=== PATIENT | female | born 1965 | race Caucasian/White ===

== ENCOUNTER 2019-08-17 12:45 | Outpatient (CLI) | payer OTHER, SELFPAY ==
--- NOTE | 2019-08-17 13:05 | MM_ITS ---
WS: [id number] SCREENING DIGITAL MAMMOGRAM WITH CAD HISTORY: SCREENING COMPARISON: 08/02/2018 and 06/30/2017 Bilateral CC and MLO views submitted. Computer aided detection analyzed. Breast composition: The breasts are heterogeneously dense, which may obscure small masses. No suspici ous masses, microcalcifications or architectural distortion. Benign cluster of calcifications in the inferior LEFT breast. No suspicious grouping of calcifications. MM/[id number] IMPRESSION: BI-RADS: 2-Benign FOLLOW UP: 1 Year Follow-up
== END 2019-08-17 12:46 | disposition home or self-care (01) ==
LOC: RADSHAW 12:49
PROVIDERS: PCP Family Medicine; Visit Provider Family Medicine
DX: Z12.31 Encounter for screening mammogram for malignant neoplasm of breast (principal)
CPT/HCPCS: 77067

== ENCOUNTER → 2019-08-23 08:49 | Outpatient (BNVA) | payer OTHER, SELFPAY | PROVIDERS: PCP Family Medicine; Visit Provider Family Medicine | DX: E55.9 Vitamin D deficiency, unspecified (principal); Z86.39 Personal history of other endocrine, nutritional and metabolic disease; Z13.6 Encounter for screening for cardiovascular disorders | CPT/HCPCS: 80053; 80061; 82306; 83036; 85025 ==

== ENCOUNTER → 2019-10-08 15:56 | Outpatient (BNVA) | payer OTHER, SELFPAY | PROVIDERS: PCP Family Medicine; Visit Provider Family Medicine | DX: E78.5 Hyperlipidemia, unspecified (principal) | CPT/HCPCS: 80053 ==

== ENCOUNTER → 2019-11-28 08:44 | Outpatient (BNVA) | payer OTHER, SELFPAY | PROVIDERS: PCP Family Medicine; Visit Provider Family Medicine | DX: E78.5 Hyperlipidemia, unspecified (principal); Z13.6 Encounter for screening for cardiovascular disorders | CPT/HCPCS: 80053; 80061 ==

== ENCOUNTER → 2020-05-13 08:41 | Outpatient (BNVA) | payer OTHER, SELFPAY | PROVIDERS: PCP Family Medicine; Visit Provider Family Medicine | DX: E78.5 Hyperlipidemia, unspecified (principal); Z79.899 Other long term (current) drug therapy | CPT/HCPCS: 80053 ==

== ENCOUNTER 2020-09-03 14:17 | Outpatient (CLI) | payer OTHER, SELFPAY ==
--- NOTE | 2020-09-03 14:23 | MM_ITS ---
WS: [id number] BILATERAL DIGITAL SCREENING MAMMOGRAPHY WITH CAD CLINICAL INFORMATION: SCREENING HISTORY: Screening mammogram. No current complaints. COMPARISON: August 17, 2019 TECHNIQUE: Bilateral CC and MLO views. FINDINGS: The breasts are composed of heterogeneous fibroglandular density tissue, which can limit the detectio n of small underlying mass lesions. Lucent centered calcifications left breast. No suspicious mass, a symmetry, calcifications, or architectural distortion. No evidence of malignancy. MM/[id number] IMPRESSION: BI-RADS: 2-Benign FOLLOW UP: 1 Year Follow-up Recommend return to annual screening mammography.
== END 2020-09-03 14:18 | disposition home or self-care (01) ==
PROVIDERS: PCP Family Medicine; Visit Provider Family Medicine
DX: Z12.31 Encounter for screening mammogram for malignant neoplasm of breast (principal)
CPT/HCPCS: 77067

== ENCOUNTER → 2020-12-01 08:40 | Outpatient (BNVA) | payer OTHER, SELFPAY | PROVIDERS: PCP Family Medicine; Visit Provider Family Medicine | DX: E78.5 Hyperlipidemia, unspecified (principal); Z86.39 Personal history of other endocrine, nutritional and metabolic disease | CPT/HCPCS: 80053; 80061; 82306; 85025 ==

== ENCOUNTER → 2021-06-01 08:22 | Outpatient (BNVA) | payer OTHER, SELFPAY | PROVIDERS: PCP Family Medicine; Visit Provider Family Medicine | DX: E78.5 Hyperlipidemia, unspecified (principal) | CPT/HCPCS: 80053 ==

== ENCOUNTER 2021-06-04 08:31 | Emergency (ER) | payer OTHER, SELFPAY ==
[2021-06-04 08:38] VITALS: BP 123/95; PULSE 115; RESP 22; TEMP 36.6; O2SAT 100; BMI 26.8
--- NOTE | 2021-06-04 08:40 | W.ED.ALLEREA ---
HPI - Allergic Reaction General: Chief complaint: Allergic Reaction Stated complaint: Alergic rx took epipen Time Seen by Provider: 06/04/21 08:37 History of Present Illness: HPI narrative: Patient is a 56 female comes to the ED with allergic reaction. Patient has a history of all fine gal allergy. Patient says she just took Prilosec for the first time in a long time and immediately afterwards she developed hives, tongue swelling and headache. She describes the head pain is like her head was swelling up. Patient took her EpiPen and decided to come here to the ED for further evaluation. Currently here in the ED her hives and tongue swelling have resolved. Associated symptoms: Reports tongue swelling; Deny abdominal pain, nausea or vomiting Review of Systems Const: Denies: fever(s), chills or fatigue Eyes: Denies: change in vision or eye discomfort ENMT: Denies: throat pain, odynophagia, nasal discharge or nasal congestion Card: Denies: chest pain, palpitations, edema, swelling of feet/ankles, dyspnea on exertion or orthopnea Resp: Denies: dyspnea, productive cough or non-productive cough GI: Denies: abdominal pain, nausea, vomiting, diarrhea, constipation or hematochezia : Denies: flank pain, dysuria or hematuria Musc: Denies: neck pain, back pain or extremity swelling Skin/Breast: Denies: rash or new lesions Neuro: Denies: headache(s), numbness in extremities or weakness in extremities All/Imm: Reports: urticaria and tongue swelling PFSH ED PFSH: Medical History Allergy to alpha-gal Hyperlipidemia No pertinent past medical history Surgical History H/O: hysterectomy Partial hyst. Family History Other Cancer Hyperlipidemia Hypertension Social History Smoking and tobacco status: current some day smoker (uses a vape pen) Alcohol intake: current Alcohol intake frequency: few times a week Alcohol type: beer Physical Exam Const: COMMON NORMALS: no acute distress, patient oriented x3 and alert GENERAL APPEARANCE: cooperative HENMT: COMMON NORMALS: normocephalic HEAD & SCALP: normocephalic MOUTH: Normal oral and palatal mucosa present THROAT: posterior oropharynx normal and uvula midline Neck/C-Spine: COMMON NORMALS: supple GENERAL: Yes normal visual inspection Resp: COMMON NORMALS: normal respiratory effort, No retractions, No use of accessory muscles and clear to auscultation bilaterally AUSCULTATION: clear to auscultation bilaterally Cardio: COMMON NORMALS: regular rate, regular rhythm, S1 normal heart sound present, S2 normal heart sound present, No gallops present (Cardio), No clicks present (Cardio), No murmurs present (Cardio) and Peripheral pulses 2+ throughout RATE: regular rate RHYTHM: regular rhythm HEART SOUNDS: S1 normal heart sound present and S2 normal heart sound present PERIPHERAL PULSES: Peripheral pulses 2+ throughout GI: COMMON NORMALS: Normal to inspection, nondistended, normoactive bowel sounds present, Soft to palpation, non-tender and no masses PALPATION: Yes Soft to palpation : COMMON NORMALS: Yes no CVA tenderness BLADDER/KIDNEY EXAM: Yes no CVA tenderness Back/Pelvis: COMMON NORMALS: no CVA tenderness Extremity: COMMON NORMALS: normal to inspection Neuro: COMMON NORMALS: patient oriented x3 and moves all extremities SENSORIUM/ORIENTATION: Yes alert Skin: GENERAL SKIN EXAM: dry skin Course Vital Signs: Vital signs: Vital Signs Temperature 97.9 F 06/04/21 08:38 Pulse Rate 106 H 06/04/21 09:24 Respiratory Rate 14 06/04/21 09:24 Blood Pressure 128/96 06/04/21 09:24 Pulse Oximetry 98 06/04/21 09:24 MDM - Allergic Reaction Medical Decision Making Patient is a 56-year-old female comes to the ED with allergic reaction. Patient has a history of alpha gal and has used EpiPen for past allergic reactions. Patient used EpiPen and came here to the ED for further evaluation. Patient was having some tongue swelling, hives. Here in the ED most of patient's symptoms had resolved. She was then given IV fluids, Pepcid, Solu-Medrol and Benadryl. Patient's symptoms completely resolved and she was feeling better. She was watched for close to an hour and a half and had no rebound reactions. She was stable for discharge home and told to follow-up with her PCP in the next week for reevaluation. Return to ED precautions given. Patient is to agree with plan. Discharge Plan Discharge Patient Disposition: Home Clinical Impression: Allergic reaction Qualifiers: Encounter type: initial encounter Qualified Code(s): T78.40XA - Allergy, unspecified, initial encounter Condition: Stable Prescriptions: No Action atorvastatin 20 mg tablet 20 mg PO DAILY Qty: 90 1RF epinephrine 0.3 mg/0.3 mL auto-injector 0.3 mg IM Q15M PRN (Reason: anaphylaxis) Qty: 2 0RF Rx Instructions: for 2 doses 340 B Benadryl 25 mg Capsule 25 mg PO Q6H PRN (Reason: Allergic Symptoms) 0RF Vitamin D3 10 mcg (400 unit) Tablet 10 mcg PO DAILY 0RF Discharge Orders: Discharge ED (Routine); Ordered 06/04/21 Ordered By: Luis Angel Jose Referrals: Yen Patton DO [Primary Care Provider] - Discharge Diet: Regular Discharge Activity: Increase activity as tolerated Patient Instructions: Allergic Reaction Activity Restrictions/Additional Instructions: Follow-up with medical provider as directed in the next 7 to 10 days for evaluation. Continue taking medication as previously prescribed. Use EpiPen as needed for any other allergic reactions. Return to the ER or your medical provider if condition worsens. Please read and understand discharge instructions. Thank you for choosing [facility] for your healthcare needs today. Please realize this is an emergency room and that we are providing you with a medical screening exam and this may not be complete and all inclusive of all the testing and or work up that you may need to determine your ailment or severity of your illness. It is very important that you follow up as instructed or that you return to the Emergency Department should you have concerns or if your condition changes or worsens in any way. Coding Level of Care Code ED Patient Observation Assistant for Royce Stevenson Exam Comprehensive
[2021-06-04] MEDS: diphenhydrAMINE 50 mg/mL SDV 1mL IVP (08:48)
[2021-06-04] MEDS: famotidine 20 mg/2 mL INJ 40 MG IVP (08:48)
[2021-06-04] MEDS: sodium chloride 0.9% 1,000 ML 999 ML IV (08:49)
[2021-06-04 09:24] VITALS: BP 128/96; PULSE 106; RESP 14; O2SAT 98
--- NOTE | 2021-06-04 10:22 | PC.NURSE ---
Patient refused zofran, she states she is afraid to have reaction and does not want to take it.
[2021-06-04 10:57] VITALS: BP 134/79; PULSE 100; RESP 16; O2SAT 96
[2021-06-04 10:59] VITALS: BP 134/79; PULSE 100; RESP 16; O2SAT 96
== END 2021-06-04 11:01 | disposition home or self-care (01) ==
PROVIDERS: Emergency Provider Physician Assistant; PCP Family Medicine
DX: L50.0 Allergic urticaria (principal); T47.1X5A Adverse effect of other antacids and anti-gastric-secretion drugs, initial encounter; F17.290 Nicotine dependence, other tobacco product, uncomplicated
CPT/HCPCS: 96361; 96374; 96375; 99284; J1200; J2930; J3490; J7030

== ENCOUNTER 2021-08-11 09:31 | Observation (INO) | payer OTHER, SELFPAY ==
[2021-08-11] VITALS (23 sets, daily range): BP systolic 93–166; BP diastolic 67–99; PULSE 67–103; RESP 14–20; TEMP 36.1–36.8; O2SAT 92–100; BMI 25.5
--- NOTE | 2021-08-11 10:44 | ED_ITS ---
Documented by User: BRIGHT Gann 08/11/21 12:46 HPI - Abdominal Pain General: Chief Complaint: Nausea/Vomiting/Diarrhea Stated Complaint: abd pain, N/V Time Seen by Provider: 08/11/21 10:33 Source: patient Mode of arrival: ambulatory Limitations: no limitations History of Present Illness: Patient is a very nice 56-year-old female who presents to ED today with a complaint of right lower abdominal pain. Patient tells me approximately 2 days ago she began feeling pain in her right lower quadrant. She thought it might be secondary to gas/constipation. Patient states she was able to have a bowel movement and was passing gas easily. She states over the past 48 hours pain has progressively worsened. She states this morning she had repetitive episodes of nonbloody emesis. She has not been running fevers. She has no urinary symptoms. She was seen by Dr. Hewitt earlier today and sent here to the ED for concerns of an acute abdomen. Previous abdominal surgeries include a hysterectomy. MD elicited complaint: abdominal pain Pertinent past history: none Onset (ago): day(s) Pain Consistency: constant Location: RLQ Severity: severe Quality: stabbing and sharp Radiation: none Migration to: no migration Associated Symptoms: Reports nausea and vomiting; Denies chills, diarrhea, dysuria, fever(s), hematochezia, hematuria and melena Related Data: Patient : No Review of Systems Const: Denies: fever(s), chills, body aches, fatigue or malaise Card: Denies: chest pain Resp: Denies: dyspnea GI: Reports: abdominal pain, nausea and vomiting; Denies: diarrhea, hematochezia or melena : Denies: flank pain, dysuria or hematuria Musc: Denies: neck pain, back pain, extremity pain or joint pain Skin/Breast: Denies: rash Neuro: Denies: headache(s), numbness in extremities, weakness in extremities, sensory changes or dizziness PFSH ED PFSH: Medical History Acute abdominal pain Allergy to alpha-gal Hyperlipidemia No pertinent past medical history Surgical History H/O: hysterectomy Partial hyst. Family History Other Cancer Hyperlipidemia Hypertension Social History Smoking and tobacco status: current some day smoker (uses a vape pen) Alcohol intake: current Alcohol intake frequency: few times a week Alcohol type: beer Physical Exam Const: COMMON NORMALS: average body habitus, patient oriented x3, no limitati ons, healthy appearing, alert and well nourished GENERAL APPEARANCE: coop erative and in distress (patient appears uncomfortable secondary to pain) ORIENTATION/CONSCIOUSNESS: Yes awake, Yes oriented to person, Yes oriented to place and Yes oriented to time HENMT: COMMON NORMALS: normocephalic and atraumatic HEAD & SCALP: normal to inspection, normocephalic and atraumatic Resp: COMMON NORMALS: normal respiratory effort and clear to auscultation bilaterally AUSCULTATION: clear to auscultation bilaterally Cardio: COMMON NORMALS: regular rate and regular rhythm RATE: regular rate RHYTHM: regular rhythm GI: COMMON NORMALS: Normal to inspection, nondistended, normoactive bowel sounds present, Soft to palpation, No hepatosplenomegaly present and no masses INSPECTION: Yes normal to inspection AUSCULTATION: Yes normoactive bowel sounds PALPATION: Yes Soft to palpation, Yes Tenderness to palpation present (GI) (throughout lower abdomen; maximum pain to RLQ), Yes Guarding due to palpation present (GI) and Yes No hepatosplenomegaly present : COMMON NORMALS: Yes no CVA tenderness BLADDER/KIDNEY EXAM: Yes no CVA tenderness Back/Pelvis: COMMON NORMALS: no CVA tenderness Extremity: GENERAL: Yes normal exam except as noted Neuro: KRUPA COMA SCALE: document GCS findings [place] coma scale eye opening: Spontaneous [place] coma scale verbal response: Orientated [place] coma scale motor response: Obey commands [place] coma scale total score: 15 COMMON NORMALS: patient oriented x3 SENSORIUM/ORIENTATION: Yes alert, Yes oriented to person, Yes oriented to place and Yes oriented to time Skin: COMMON NORMALS: no rashes or lesions noted GENERAL SKIN EXAM: no rashes or lesions noted Course Vital Signs: Vital signs: Vital Signs Temperature 97.6 F 08/11/21 15:35 Pulse Rate 81 08/11/21 15:35 Respiratory Rate 18 08/11/21 15:35 Blood Pressure 146/83 08/11/21 15:35 Pulse Oximetry 98 08/11/21 15:35 MDM - Abdominal Pain Medical Decision Making Patient has acute appendicitis on her CT scan. She is not tachycardic or febrile. White count is 11.1. Tells me she has no known medical history although she does states she takes a statin daily. Case discussed with Dr. Godoy who has spoken to general surgeon Dr. Messina who will admit patient to his service and take directly to surgery. Later I was contacted by in regards to incidental finding regarding a gallbladder lesion. Dr. Messina made aware of this and will follow patient. Lab Data : 08/11/21 10:46 08/11/21 10:46 Labs/Radiology: Radiology Impressions Abdomen/Pelvis CT 08/11/21 10:55 IMPRESSION: 1. Findings compatible with acute appendicitis in the RIGHT lower quadrant. No drainable abscess or fluid collection. 2. Lobulated and septated 2.5 cm calcified lesion abutting the gallbladder in the gallbladder fossa. This appears separate from the gallbladder but indeterminate. Recommend further evaluation with ultrasound and MRCP. Differenti al considerations include biliary cystoadenoma/cystadenocarcinoma or exophytic gallbladder wall polypoid lesion. 3. No other significant findings. Notified BRIGHT Gann at 08/11/2021 11:58 AM. Laboratory Results WBC 11.1 10^3/uL (4.0-10.0) H 08/11/21 10:46 RBC 4.70 10^6/uL (4.1-5.3) 08/11/21 10:46 Hgb 13.5 g/dL (11.5-15.3) 08/11/21 10:46 Hct 39.5 % (37.0-47.0) 08/11/21 10:46 MCV 84.0 fl (81-99) 08/11/21 10:46 MCH 28.7 pg (28.0-34.0) 08/11/21 10:46 MCHC 34.2 g/dL (30.0-36.0) 08/11/21 10:46 RDW 12.8 % (12.1-15.1) 08/11/21 10:46 Plt Count 293 10^3/cmm (130-400) 08/11/21 10:46 MPV 11.0 fL (7.4-10.4) H 08/11/21 10:46 Neut % (Auto) 78.5 % 08/11/21 10:46 Lymph % (Auto) 16.8 % 08/11/21 10:46 [place] % (Auto) 3.6 % 08/11/21 10:46 Eos % (Auto) 0.3 % 08/11/21 10:46 Baso % (Auto) 0.4 % 08/11/21 10:46 Neut # (Auto) 8.73 10^3/uL (1.8-7.7) H 08/11/21 10:46 Lymph # (Auto) 1.9 10^3/uL (0.8-4.8) 08/11/21 10:46 [place] # (Auto) 0.4 10^3/uL (0.2-0.9) 08/11/21 10:46 Eos # (Auto) 0.0 10^3/uL (0.0-0.8) 08/11/21 10:46 Baso # (Auto) 0.0 10^3/uL (0.0-0.1) 08/11/21 10:46 Nucleated RBC % (auto) 0 % 08/11/21 10:46 Nucleated RBCs # 0.0 /100WBC 08/11/21 10:46 Sodium 137 mmol/L (136-145) 08/11/21 10:46 Potassium 3.8 mmol/L (3.5-5.1) 08/11/21 10:46 Chloride 95 mmol/L (98-107) L 08/11/21 10:46 Carbon Dioxide 24 mmol/L (22-29) 08/11/21 10:46 Anion Gap 21.8 (5-19) H 08/11/21 10:46 BUN 8 mg/dL (6-20) 08/11/21 10:46 Creatinine 0.8 mg/dL (0.5-0.9) 08/11/21 10:46 GFR Calculation 73.9 mL/min (90-130) L 08/11/21 10:46 Glucose 132 mg/dL (65-115) H 08/11/21 10:46 Calculated Osmolality 284 mOsm/kg (285-295) L 08/11/21 10:46 Calcium 10.4 mg/dL (8.5-10.5) 08/11/21 10:46 Total Bilirubin 0.5 mg/dL (0.15-1.2) 08/11/21 10:46 AST 20 U/L (0-32) 08/11/21 10:46 ALT 28 U/L (0-33) 08/11/21 10:46 Alkaline Phosphatase 117 IU/L (35-105) H 08/11/21 10:46 Total Protein 8.2 g/dL (6.6-8.7) 08/11/21 10:46 Albumin 5.2 g/dL (3.5-5.2) 08/11/21 10:46 Globulin 3.0 g/dL (1.3-4.6) 08/11/21 10:46 Lipase 21 U/L (13-60) 08/11/21 10:46 Urine Color Yellow (Yellow) 08/11/21 11:48 Urine Appearance Clear (CLEAR) 08/11/21 11:48 Urine pH 8 (5-7) H 08/11/21 11:48 Ur Specific [place] 1.010 (1.005-1.030) 08/11/21 11:48 Urine Protein Neg (Negative) 08/11/21 11:48 Urine Glucose (UA) Norm (Normal) 08/11/21 11:48 Urine Ketones Negative (Negative) 08/11/21 11:48 Urine Blood Neg (Negative) 08/11/21 11:48 Urine Nitrate Negative (Negative) 08/11/21 11:48 Urine Bilirubin Neg (Negative) 08/11/21 11:48 Prot Sulfosalicylic Acd Negative (Negative) 08/11/21 11:48 Urine Urobilinogen Norm mg/dL (Negative) 08/11/21 11:48 Ur Leukocyte Esterase Negative (Negative) 08/11/21 11:48 Discharge Plan Discharge Patient Disposition: Admitted As Inpatient Admit Provider: Bang Messina Clinical Impression: Acute appendicitis Qualifiers: Acute appendicitis type: with localized peritonitis Appendicitis gangrene presence: without gangrene Appendicitis perforation presence: without perforation Appendicitis abscess presence: without abscess Qualified Code(s): K35.30 - Acute appendicitis with localized peritonitis, without perforation or gangrene Condition: Stable Coding Level of Care Code ED Manager Operations for g Fwd Exam Comprehensive Documented by User: Magdi Godoy DO 08/11/21 16:51 HPI - Abdominal Pain General: Chief Complaint: Nausea/Vomiting/Diarrhea Stated Complaint: abd pain, N/V Time Seen by Provider: 08/11/21 10:33 ON LICENSE OF [facility] ED PFSH: Medical History Acute abdominal pain Allergy to alpha-gal Hyperlipidemia No pertinent past medical history Surgical History H/O: hysterectomy Partial hyst. Family History Other Cancer Hyperlipidemia Hypertension Social History Smoking and tobacco status: current some day smoker (uses a vape pen) Alcohol intake: current Alcohol intake frequency: few times a week Alcohol type: beer Physical Exam Neuro: KRUPA COMA SCALE: document GCS findings [place] coma scale total score: 15 Course Vital Signs: Vital signs: Vital Signs Temperature 97.6 F 08/11/21 15:35 Pulse Rate 81 08/11/21 15:35 Respiratory Rate 18 08/11/21 15:35 Blood Pressure 146/83 08/11/21 15:35 Pulse Oximetry 98 08/11/21 15:35 MDM - Abdominal Pain Medical Decision Making Patient has acute appendicitis on her CT scan. She is not tachycardic or febrile. White count is 11.1. Tells me she has no known medical history although she does states she takes a statin daily. Case discussed with Dr. Godoy who has spoken to general surgeon Dr. Messina who will admit patient to his service and take directly to surgery. Later I was contacted by in regards to incidental finding regarding a gallbladder lesion. Dr. Messina made aware of this and will follow patient. Chart reviewed and patient discussed with midlevel. Agree with assessment and plan. Discussed Dr. Messina plans to take patient to surgery. Medical Records I reviewed the patient's medical records. Lab Data I reviewed the patient's lab results. : 08/11/21 10:46 08/11/21 10:46 Labs/Radiology: Radiology Impressions Abdomen/Pelvis CT 08/11/21 10:55 IMPRESSION: 1. Findings compatible with acute appendicitis in the RIGHT lower quadrant. No drainable abscess or fluid collection. 2. Lobulated and septated 2.5 cm calcified lesion abutting the gallbladder in the gallbladder fossa. This appears separate from the gallbladder but indete rminate. Recommend further evaluation with ultrasound and MRCP. Differential considerations include biliary cystoadenoma/cystadenocarcinoma or exophytic gallbladder wall polypoid lesion. 3. No other significant findings. Notified BRIGHT Gann at 08/11/2021 11:58 AM. Laboratory Results WBC 11.1 10^3/uL (4.0-10.0) H 08/11/21 10:46 RBC 4.70 10^6/uL (4.1-5.3) 08/11/21 10:46 Hgb 13.5 g/dL (11.5-15.3) 08/11/21 10:46 Hct 39.5 % (37.0-47.0) 08/11/21 10:46 MCV 84.0 fl (81-99) 08/11/21 10:46 MCH 28.7 pg (28.0-34.0) 08/11/21 10:46 MCHC 34.2 g/dL (30.0-36.0) 08/11/21 10:46 RDW 12.8 % (12.1-15.1) 08/11/21 10:46 Plt Count 293 10^3/cmm (130-400) 08/11/21 10:46 MPV 11.0 fL (7.4-10.4) H 08/11/21 10:46 Neut % (Auto) 78.5 % 08/11/21 10:46 Lymph % (Auto) 16.8 % 08/11/21 10:46 [place] % (Auto) 3.6 % 08/11/21 10:46 Eos % (Auto) 0.3 % 08/11/21 10:46 Baso % (Auto) 0.4 % 08/11/21 10:46 Neut # (Auto) 8.73 10^3/uL (1.8-7.7) H 08/11/21 10:46 Lymph # (Auto) 1.9 10^3/uL (0.8-4.8) 08/11/21 10:46 [place] # (Auto) 0.4 10^3/uL (0.2-0.9) 08/11/21 10:46 Eos # (Auto) 0.0 10^3/uL (0.0-0.8) 08/11/21 10:46 Baso # (Auto) 0.0 10^3/uL (0.0-0.1) 08/11/21 10:46 Nucleated RBC % (auto) 0 % 08/11/21 10:46 Nucleated RBCs # 0.0 /100WBC 08/11/21 10:46 Sodium 137 mmol/L (136-145) 08/11/21 10:46 Potassium 3.8 mmol/L (3.5-5.1) 08/11/21 10:46 Chloride 95 mmol/L (98-107) L 08/11/21 10:46 Carbon Dioxide 24 mmol/L (22-29) 08/11/21 10:46 Anion Gap 21.8 (5-19) H 08/11/21 10:46 BUN 8 mg/dL (6-20) 08/11/21 10:46 Creatinine 0.8 mg/dL (0.5-0.9) 08/11/21 10:46 GFR Calculation 73.9 mL/min (90-130) L 08/11/21 10:46 Glucose 132 mg/dL (65-115) H 08/11/21 10:46 Calculated Osmolality 284 mOsm/kg (285-295) L 08/11/21 10:46 Calcium 10.4 mg/dL (8.5-10.5) 08/11/21 10:46 Total Bilirubin 0.5 mg/dL (0.15-1.2) 08/11/21 10:46 AST 20 U/L (0-32) 08/11/21 10:46 ALT 28 U/L (0-33) 08/11/21 10:46 Alkaline Phosphatase 117 IU/L (35-105) H 08/11/21 10:46 Total Protein 8.2 g/dL (6.6-8.7) 08/11/21 10:46 Albumin 5.2 g/dL (3.5-5.2) 08/11/21 10:46 Globulin 3.0 g/dL (1.3-4.6) 08/11/21 10:46 Lipase 21 U/L (13-60) 08/11/21 10:46 Urine Color Yellow (Yellow) 08/11/21 11:48 Urine Appearance Clear (CLEAR) 08/11/21 11:48 Urine pH 8 (5-7) H 08/11/21 11:48 Ur Specific [place] 1.010 (1.005-1.030) 08/11/21 11:48 Urine Protein Neg (Negative) 08/11/21 11:48 Urine Glucose (UA) Norm (Normal) 08/11/21 11:48 Urine Ketones Negative (Negative) 08/11/21 11:48 Urine Blood Neg (Negative) 08/11/21 11:48 Urine Nitrate Negative (Negative) 08/11/21 11:48 Urine Bilirubin Neg (Negative) 08/11/21 11:48 Prot Sulfosalicylic Acd Negative (Negative) 08/11/21 11:48 Urine Urobilinogen Norm mg/dL (Negative) 08/11/21 11:48 Ur Leukocyte Esterase Negative (Negative) 08/11/21 11:48 Discharge Plan Discharge Patient Disposition: Admitted As Inpatient Admit Provider: Bang Messina Clinical Impression: Acute appendicitis Qualifiers: Acute appendicitis type: with localized peritonitis Appendicitis gangrene presence: without gangrene Appendicitis perforation presence: without perforation Appendicitis abscess presence: without abscess Qualified Code(s): K35.30 - Acute appendicitis with localized peritonitis, without perforation or gangrene Condition: Stable Coding Level of Care Code ED Manager Operations for g Fwd Exam Comprehensive
--- NOTE | 2021-08-11 10:55 | CT_ITS ---
WS: [id number] CT ABDOMEN PELVIS TECHNIQUE: Contrast-enhanced CT of the abdomen and pelvis with coronal and sagittal reformatted image s. CLINICAL INFORMATION: RLQ pain, N/V COMPARISON: None. DLP: 1331.[address] scans at [facility] use at least one of these dose optimization techniques: automated e xposure control; mA and/or kV adjustment per patient size (includes targeted exams where dose is matc hed to clinical indication); or iterative reconstruction. FINDINGS: Inflammatory stranding and edema about the appendix and RIGHT lower quadrant. Fluid-filled appendix m easuring up to 15 mm with appendicoliths in the proximal and distal aspect. Findings compatible with acute appendicitis. No drainable abscess or fluid collection. A few reactive lymph nodes in the RIGHT lower quadrant. Mild diffuse fatty infiltration the liver. Normal portal vein and splenic vein. Normal spleen. Normal GE junction. Normal portal vein and splenic vein. Celiac and SMA are normal. Normal caliber abdomina l aorta. Aortic calcification. Tiny fat-containing umbilical hernia. No hydronephrosis in either kidney. Adren al glands are normal. Lung bases are well aerated. Calcified low-attenuation lobulated and septated lesion abutting the gallbladder wall or adjacent to the gallbladder in the gallbladder fossa. This measures 2.4 x 1.7 CM. This is indeterminant and recom mend further evaluation with ultrasound and MRCP. Common bile duct appears normal. No intrahepatic bi liary dilatation. Gallbladder otherwise appears normal. Normal visualized pancreas. CT/CT abdomen pelvis w con* [id number] IMPRESSION: 1. Findings compatible with acute appendicitis in the RIGHT lower quadrant. No drainable abscess or fluid collection. 2. Lobulated and septated 2.5 cm calcified lesion abutting the gallbladder in the gallbladder fossa. This appears separate from the gallbladder but indetermi dani. Recommend further evaluation with ultrasound and MRCP. Differential consi derations include biliary cystoadenoma/cystadenocarcinoma or exophytic gallblad osiris wall polypoid lesion. 3. No other significant findings. Notified BRIGHT Gann at 08/11/2021 11:58 AM.
[2021-08-11] MEDS: morphine 4 mg/mL SDV 1 mL IVP (10:59)
[2021-08-11 11:00] LABS: Basophils % 0.4 %; Eosinophils % 0.3 %; Hematocrit 39.5 % (37.0-47.0); Hemoglobin 13.5 g/dL (11.5-15.3); Lymphocytes # 1.9 10^3/uL (0.8-4.8); Lymphocytes % 16.8 %; Mean Corpuscular HGB Conc 34.2 g/dL (30.0-36.0); Mean Corpuscular Hemoglobin 28.7 pg (28.0-34.0); Monocytes # 0.4 10^3/uL (0.2-0.9); Monocytes % 3.6 %; Neutrophils # 8.73 10^3/uL (1.8-7.7); Neutrophils % 78.5 %; Nucleated Red Blood Cells % 0 %; Platelet Count 293 10^3/cmm (130-400); Red Cell Distribution Width 12.8 % (12.1-15.1); White Blood Count 11.1 10^3/uL (4.0-10.0)
[2021-08-11] MEDS: ondansetron 2 mg/ML SDV 2 mL 4 MG IVP ×2 (11:00→15:09)
[2021-08-11 11:15] LABS: Alanine Aminotransferase 28 U/L (0-33); Albumin Level 5.2 g/dL (3.5-5.2); Alkaline Phosphatase 117 IU/L (35-105); Anion Gap 21.8 (5-19); Aspartate Amino Transferase 20 U/L (0-32); Blood Urea Nitrogen 8 mg/dL (6-20); Calcium 10.4 mg/dL (8.5-10.5); Carbon Dioxide 24 mmol/L (22-29); Chloride 95 mmol/L (98-107); Glomerular Filtration Rate 73.9 mL/min (90-130); Glucose 132 mg/dL (65-115); Lipase 21 U/L (13-60); Osmolality Calculated 284 mOsm/kg (285-295); Potassium 3.8 mmol/L (3.5-5.1); Sodium 137 mmol/L (136-145); Total Bilirubin 0.5 mg/dL (0.15-1.2); Total Protein 8.2 g/dL (6.6-8.7)
[2021-08-11] MEDS: iohexol 350 mg/mL 100 mL Btl IV (11:21)
[2021-08-11 11:56] LABS: Add Urine Microscopic? NO; Charge for UA Resulting for Rev
[2021-08-11 12:02] LABS: Glucose Urine UA Norm (Normal); Ketones Urine Negative (Negative); Protein Urine Neg (Negative); Urine Appearance Clear (CLEAR); Urine Color Yellow (Yellow); pH Urine 8 (5-7)
[2021-08-11 12:03] LABS: Bilirubin Urine Neg (Negative); Blood Urine Neg (Negative); Leukocyte Esterase Urine Negative (Negative); Nitrate Urine Negative (Negative); Sulfosalicylic Acid Urine Negative (Negative); Urobilinogen Urine Norm (Negative)
[2021-08-11] MEDS: piperacillin-tazobactam 3.375 GM in sodium chloride 0.9% (plus) 50 ML IV ×2 (12:11→17:55)
[2021-08-11] MEDS: HYDROmorphone 1 mg/mL INJ 1 mL IVP (12:12)
[2021-08-11] MEDS: sodium chloride 0.9% 1,000 ML 999 ML IV (12:12)
--- NOTE | 2021-08-11 13:09 | ANES.PREANE2 ---
Pre-Anesthetic Assessment Height/Weight: Height 1.78 m Weight 80.739 kg Temp Pulse Resp BP Pulse Ox 98.0 F 72 18 157/82 98 08/11/21 12:57 08/11/21 12:57 08/11/21 12:57 08/11/21 12:57 08/11/21 12:57 Operation Date: 08/11/21 13:40 Proposed Procedures p Laparoscopic Appendectomy(Not Applicable) - Bang Messina MD Familial anesthetic complications: None Was Beta Claudette taken within 24 hours: N/A Was Clonidine taken within 24 hours: N/A Last intake: Intake small applesauce and water before 0700 Last Liquid Date 08/11/21 Last Liquid Time 07:00 Last Solid Date 08/11/21 Last Solid Time 07:00 Social No alcohol and No tobacco Exam alert, oriented x 3, clear to auscultation bilaterally and regular rate & rhythm Airway Mallampati: Class II Dentition: other (missing) Pulmonary None reported CV/HEM None reported None reported Hepatic None reported GI None reported Metabolic Hyperlipidemia Musc/skel None reported Neuropsych None reported Anesthetic Plan ASA status: 3 Risk of > 500 ml blood loss (7ml/kg in children): No Medications/Allergies Home Medications Medication Instructions Recorded Confirmed Last Taken Type atorvastatin 20 mg tablet 20 mg PO DAILY #90 tab 12/22/20 08/11/21 06/03/21 Rx epinephrine 0.3 mg/0.3 mL 0.3 mg (0.3 mL) IM Q15M PRN #2 ea 03/09/21 08/11/21 06/04/21 Rx injection, auto-injector fluocinolone 0.01 % topical 1 applic TOPICAL BID 08/11/21 08/11/21 Unknown History solution triamcinolone acetonide 0.1 % 1 applic TOPICAL BID PRN 08/11/21 08/11/21 Unknown History topical cream Allergies Allergy/AdvReac Type Severity Reaction Status Date / Time lactase [From Dairy Aid] Allergy Severe ALGY-Anaphy Verified 08/11/21 09:13 laxis omeprazole [From Prilosec] Allergy ALGY-Redness Verified 08/11/21 09:07 of Skin alpha-gal allergy Allergy ALGY-Anaphy Uncoded 08/11/21 12:23 laxis 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 Family History Other Cancer Hyperlipidemia Hypertension Social History Smoking and tobacco status: current some day smoker (uses a vape pen) Alcohol intake: current Alcohol intake frequency: few times a week Alcohol type: beer Data Anesthesia : 08/11/21 10:46 08/11/21 10:46 Short CBC 08/11/21 Range/Units 10:46 WBC 11.1 H (4.0-10.0) 10^3/uL Hgb 13.5 (11.5-15.3) g/dL Hct 39.5 (37.0-47.0) % MCV 84.0 (81-99) fl Plt Count 293 (130-400) 10^3/cmm Neut % (Auto) 78.5 % Neut # (Auto) 8.73 H (1.8-7.7) 10^3/uL BMP 08/11/21 10:46 Sodium 137 Potassium 3.8 Chloride 95 L Carbon Dioxide 24 BUN 8 Creatinine 0.8 Glucose 132 H Calcium 10.4 Liver Function 08/11/21 Range/Units 10:46 Total Bilirubin 0.5 (0.15-1.2) mg/dL AST 20 (0-32) U/L ALT 28 (0-33) U/L Alkaline Phosphatase 117 H (35-105) IU/L Albumin 5.2 (3.5-5.2) g/dL Urine 08/11/21 Range/Units 11:48 Urine Color Yellow (Yellow) Urine Appearance Clear (CLEAR) Urine pH 8 H (5-7) Ur Specific [place] 1.010 (1.005-1.030) Urine Protein Neg (Negative) Urine Glucose (UA) Norm (Normal) Urine Ketones Negative (Negative) Urine Nitrate Negative (Negative) Urine Bilirubin Neg (Negative) Ur Leukocyte Esterase Negative (Negative) Cardiac Studies: No Data to Display
--- NOTE | 2021-08-11 13:10 | P.HP_ITS ---
Providers/Chief Complaint Primary Care Provider: Yen Patton DO Chief Complaint: abd pain, N/V History of Present Illness Ms. brian Kothari is a resident 56 year old female presents to the emergency department with worsening abdominal pain. Patient has been complaining of right lower quadrant abdominal pain for the past 2 days. She has been passing gas and having bowel movement. As the pain got worse with multiple episodes of emesis. She went to her primary care provider today and was sent to the ER for further evaluation. Pain has been constant, stabbing and sharp not being radiated or migrated. Patient reports nausea and vomiting but no other constitutional symptoms in the form of diarrhea, dysuria, fever or hematuria. Undergone a CT of the abdomen and pelvis in the ER that did show; 1.? Findings compatible with acute appendicitis in the RIGHT lower quadrant. No drainable abscess or fluid collection. 2.? Lobulated and septated 2.5 cm calcified lesion abutting the gallbladder in the gallbladder fossa. This appears separate from the gallbladder but indeterminate. Recommend further evaluation with ultrasound and MRCP. Differential considerations include biliary cystoadenoma/cystadenocarcinoma or exophytic gallbladder wall polypoid lesion. 3.? No other significant findings. And blood work was done that showed WBC count of 11.1, hemoglobin 13.5, platelet count 293. Serum creatinine 0.8 General surgery was consulted for further evaluation and care.Patient reports to me that the pain started around the umbilical area and shifted to the right lower quadrant. She does give history of alpha gal allergy. Review of Systems General: Reports: 10 or more systems reviewed and unremarkable except in HPI and below Medications/Allergies Home Medications Medication Instructions Recorded Confirmed Last Taken Type atorvastatin 20 mg tablet 20 mg PO DAILY #90 tab 12/22/20 08/11/21 06/03/21 Rx epinephrine 0.3 mg/0.3 mL 0.3 mg (0.3 mL) IM Q15M PRN #2 ea 03/09/21 08/11/21 06/04/21 Rx injection, auto-injector fluocinolone 0.01 % topical 1 applic TOPICAL BID 08/11/21 08/11/21 Unknown History solution triamcinolone acetonide 0.1 % 1 applic TOPICAL BID PRN 08/11/21 08/11/21 Unknown History topical cream Allergies Allergy/AdvReac Type Severity Reaction Status Date / Time lactase [From Dairy Aid] Allergy Severe ALGY-Anaphy Verified 08/11/21 13:20 laxis omeprazole [From Prilosec] Allergy ALGY-Redness Verified 08/11/21 13:20 of Skin alpha-gal allergy Allergy ALGY-Anaphy Uncoded 08/11/21 13:20 laxis 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 Family History Other Cancer Hyperlipidemia Hypertension Social History Smoking and tobacco status: current some day smoker (uses a vape pen) Alcohol intake: current Alcohol intake frequency: few times a week Alcohol type: beer Vitals/I&O/Wt Last Vital Signs Temp 98.0 F 08/11/21 12:57 Pulse 72 08/11/21 12:57 Resp 18 08/11/21 12:57 BP 157/82 08/11/21 12:57 Pulse Ox 98 08/11/21 12:57 Weight last 48 hrs Weight 178 lb Physical Exam Const: COMMON NORMALS: no acute distress and patient oriented x3 GENERAL A PPEARANCE: cooperative ORIENTATION/CONSCIOUSNESS: Yes awake, Yes oriented to person, Yes oriented to place and Yes oriented to time HENMT: COMMON NORMALS: normocephalic HEAD & SCALP: normocephalic Eye: COMMON NORMALS: Equal, round and reactive pupils present and no scleral icterus PUPIL: Yes Equal, round and reactive pupils present Lymph: LYMPHATIC: no lymphadenopathy noted Chest: COMMONS NORMALS: normal inspection of the chest Resp: COMMON NORMALS: normal respiratory effort and clear to auscultation bilaterally AUSCULTATION: clear to auscultation bilaterally Cardio: COMMON NORMALS: S1 normal heart sound present and S2 normal heart sound present; negative for No murmurs present (Cardio) HEART SOUNDS: S1 normal heart sound present and S2 normal heart sound present GI: COMMON NORMALS: Soft to palpation; negative for No hepatosplenomegaly present INSPECTION: Yes normal to inspection PALPATION: Yes Soft to palpation, No Firmness to palpation present (GI), Yes Tenderness to palpation present (GI) Details: RLQ and other (Suprapubic region localized tenderness and rigidity at McBurney's point), No Guarding due to palpation present (GI), No Rigid due to palpation and No No hepatosplenomegaly present Neuro: COMMON NORMALS: patient oriented x3 SENSORIUM/ORIENTATION: Yes oriented to person, Yes oriented to place and Yes oriented to time Psych: COMMON NORMALS: mental status grossly normal Skin: COMMON NORMALS: no rashes or lesions noted GENERAL SKIN EXAM: no rashes or lesions noted Data : 08/11/21 10:46 08/11/21 10:46 A&P Assessment and plan (1) Acute appendicitis: After thorough history physical examination and reviewing the chart and images with my personal interpretion the CT scan which I also do appreciate a lesion closer to the gallbladder or within. I did explain to the patient we will need an MRCP down the road. Meanwhile.I counseled the patient for laparoscopic appendectomy possible open. Indications, risks, benefits and alternatives were all discussed with the patient and did agree to proceed. Rationale was carefully and clearly discussed with the patient.Appropriate informed consent have been reviewed and signed Status: Acute Qualifiers: Acute appendicitis type: with localized peritonitis Appendicitis abscess presence: without abscess Appendicitis gangrene presence: without gangrene Appendicitis perforation presence: without perforation Qualified Code(s): K35.30 - Acute appendicitis with localized peritonitis, without perforation or gangrene Attestations Medical Necessity Statement*: Observation status for perioperative care Coding Level of Care Code Acute Ux Architect for [facility] Diagnoses Acute appendicitis K35.30 Acute appendicitis type: with localized peritonitis Appendicitis abscess presence: without abscess Appendicitis gangrene presence: without gangrene Appendicitis perforation presence: without perforation
[2021-08-11] MEDS: lidocaine 2% INJ 20 mL INJECTION (14:19)
--- NOTE | 2021-08-11 14:51 | PM.OP ---
Operative Report Date of procedure: August 11, 2021 Pre-op diagnosis: Preop Diagnosis Acute appendicitis Post-op findings: Acute prececal appendicitis Finding of hepatic mass to the right of the gallbladder yellowish in color seems to be firm the exact extent could not be determined from the laparoscopic view. Procedure done: Laparoscopic appendectomy Specimens removed/disposition: Appendix Surgeon: Bang Messina MD [employer] Worker: Surgical techPatricia Cross and neurosurgical nurse practitioner shana Anesthesia: General (REFRIGERATION OPERATOR Jaydon/REFRIGERATION OPERATOR student Fabian) Estimated blood loss (mL): 10 IV fluids (mL): 500 Procedure: Patient after being identified in the holding area and asked to void urine, and informed consent per chart ,patient was then taken back to the OR placed in supine position got intubated by anesthesia left arm was tucked tucked ,Timeout was done verifying the patient's name/date of /planned procedure and destination after the procedure, all were in agreement., preoperative antibiotics administered per protocol. prep and drape of the abdomen was done under the usual sterile technique. Started by longitudinal skin incision supraumbilical using a Hopkins trocar technique safe entry to the abdominal cavity was achieved verified by using 10 mm zero degree laparoscopy, switched to a 30? scope under direct visualization a suprapubic 5 mm trocar was inserted followed by another 5 mm trocar inserted in the left lower quadrant, I was able to position the patient in an T Oates and left side down, dissection of the prececal acutely inflamed appendix there was some adhesions towards the lateral pelvic wall that was taken down by sharp and blunt dissection, attention was deviated to the healthy base of the appendix where I had to switch the camera to 5 mm 30? scope got introduced through the left lower quadrant and through the Hopkins trocar under direct visualization a GI stapler 45 mm blue load was applied at the healthy part of the base of the appendix, and an Endoloop PDS was applied onto the mesoappendix for control , the appendix was then retrieved in an Endo Catch bag, final survey was done of the abdomen and pelvis , irrigation with warm saline, and suction was obtained, were mercury fluid like in the pelvis due to reaction from the inflamed appendix. Multiple 5 mm clips were applied onto the mesoappendix as well as the appendectomy staple line and a right lateral pelvic wall for minimal oozing. Based on the CT scan findings preoperatively I was able to have a look on the growth to the right of the gallbladder and seems to be yellowish in color. I was not able to have an understanding of the extent of it. Seems to be firm to hard in consistency. Biopsies were not attempted due to risk of potential bleeding if the tumor is connected to one of the major vessels. As MRCP was recommended by the radiologist. Pictures were obtained per chart. Final look laparoscopy was done showing no other abnormalities or injuries, all trocars were taken out under direct visualization after the supraumblical trocar site was closed by #1 PDS sutures under direct vision using fascial closure device ,followed by skin closure using 4-0 Monocryl of all trocar site incisions. infiltration of local lidocaine 2% was done to all incision sites.Dry dressing was applied.Count was completed at the end of the procedure for Entriken , sponges and instruments. Patient tolerated the procedure well and was transferred to the recovery area after extubation. I was present for the whole entire procedure
[2021-08-11] MEDS: fentaNYL 50 mcg/mL INJ 2mL IVP (15:15)
[2021-08-11] MEDS: sodium chloride 0.9% 1,000 ML 100 ML IV (16:24)
[2021-08-11] MEDS: HYDROcodone-acetaminophen 5-325 mg Tablet 1 TAB PO (16:46)
--- NOTE | 2021-08-11 19:28 | PC.NURSE ---
Report to Kayleen RN at this time.
[2021-08-11] MEDS: morphine 4 mg/mL SDV 1 mL 2 MG IVP (20:44)
--- NOTE | 2021-08-11 23:36 | PC.NURSE ---
patient resting in bed c/o break through pain and medicated as ordered. patient able to ambulate to restroom with out difficulty with one assist.
[2021-08-12] MEDS: piperacillin-tazobactam 3.375 GM in sodium chloride 0.9% (plus) 50 ML IV ×2 (02:02→10:51)
[2021-08-12] MEDS: sodium chloride 0.9% 1,000 ML 100 ML IV (02:03)
[2021-08-12 02:34] LABS: Basophils % 0.1 %; Hematocrit 34.3 % (37.0-47.0); Hemoglobin 11.6 g/dL (11.5-15.3); Lymphocytes # 0.9 10^3/uL (0.8-4.8); Lymphocytes % 8.6 %; Mean Corpuscular HGB Conc 33.8 g/dL (30.0-36.0); Mean Corpuscular Hemoglobin 29.1 pg (28.0-34.0); Mean Platelet Volume 11.1 fL (7.4-10.4); Monocytes # 0.3 10^3/uL (0.2-0.9); Monocytes % 2.7 %; Neutrophils # 9.22 10^3/uL (1.8-7.7); Neutrophils % 88.3 %; Nucleated Red Blood Cells % 0 %; Platelet Count 243 10^3/cmm (130-400); Red Blood Count 3.99 10^6/uL (4.1-5.3); White Blood Count 10.4 10^3/uL (4.0-10.0)
[2021-08-12 02:50] VITALS: BP 129/77; PULSE 67; RESP 17; TEMP 36.8; O2SAT 98
[2021-08-12 02:51] LABS: Anion Gap 16.2 (5-19); Blood Urea Nitrogen 7 mg/dL (6-20); Calcium 8.9 mg/dL (8.5-10.5); Carbon Dioxide 25 mmol/L (22-29); Chloride 103 mmol/L (98-107); Glomerular Filtration Rate 86.2 mL/min (90-130); Glucose 158 mg/dL (65-115); Osmolality Calculated 291 mOsm/kg (285-295); Potassium 4.2 mmol/L (3.5-5.1); Sodium 140 mmol/L (136-145)
[2021-08-12 03:06] VITALS: RESP 18
[2021-08-12] MEDS: HYDROcodone-acetaminophen 5-325 mg Tablet 1 TAB PO ×2 (03:06→09:23)
[2021-08-12] MEDS: morphine 4 mg/mL SDV 1 mL 2 MG IVP (03:06)
[2021-08-12 04:00] VITALS: BP 122/70; PULSE 69; RESP 17; TEMP 36.6; O2SAT 93
--- NOTE | 2021-08-12 07:29 | PM.SDS ---
Short Stay Summary Providers Date of Admit/Discharge: 08/12/21 Attending Provider: Bang Messina MD Primary Care Provider: Yen Patton DO Chief Complaint: abd pain, N/V HPI History of Present Illness Ms. brian Kothari is a resident 56 year old female presents to the emergency department with worsening abdominal pain.? Patient has been complaining of right lower quadrant abdominal pain for the past 2 days.? She has been passing gas and having bowel movement.? As the pain got worse with multiple episodes of emesis.? She went to her primary care provider today and was sent to the ER for further evaluation.? Pain has been constant, stabbing and sharp not being radiated or migrated.? Patient reports nausea and vomiting but no other constitutional symptoms in the form of diarrhea, dysuria, fever or hematuria. Undergone a CT of the abdomen and pelvis in the ER that did show; 1.? Findings compatible with acute appendicitis in the RIGHT lower quadrant. No drainable abscess or fluid collection. 2.? Lobulated and septated 2.5 cm calcified lesion abutting the gallbladder in the gallbladder fossa. This appears separate from the gallbladder but indeterminate. Recommend further evaluation with ultrasound and MRCP. Differential considerations include biliary cystoadenoma/cystadenocarcinoma or exophytic gallbladder wall polypoid lesion. 3.? No other significant findings. And blood work was done that showed WBC count of 11.1, hemoglobin 13.5, platelet count 293.? Serum creatinine 0.8 General surgery was consulted for further evaluation and care.Patient reports to me that the pain started around the umbilical area and shifted to the right lower quadrant.? She does give history of alpha gal allergy. Patient undergone uneventful laparoscopic appendectomy. Review of Systems General: Reports: 10 or more systems reviewed and unremarkable except in HPI and below Home Meds/Allergies Home Medications and Allergies Home Medications Medication Instructions Recorded Confirmed Type fluocinolone 0.01 % topical 1 applic TOPICAL BID 08/11/21 08/11/21 History solution triamcinolone acetonide 0.1 % 1 applic TOPICAL BID PRN 08/11/21 08/11/21 History topical cream Allergies Allergy/AdvReac Type Severity Reaction Status Date / Time lactase [From Dairy Aid] Allergy Severe ALGY-Anaphy Verified 08/11/21 13:20 laxis omeprazole [From Prilosec] Allergy ALGY-Redness Verified 08/11/21 13:20 of Skin alpha-gal allergy Allergy ALGY-Anaphy Uncoded 08/11/21 13:20 laxis 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 Family History Other Cancer Hyperlipidemia Hypertension Social History Smoking and tobacco status: current some day smoker (uses a vape pen) Alcohol intake: current Alcohol intake frequency: few times a week Alcohol type: beer Vitals/I&O/Wt Last Vital Signs Temp 97.8 F 08/12/21 04:00 Pulse 69 08/12/21 04:00 Resp 17 08/12/21 04:00 BP 122/70 08/12/21 04:00 Pulse Ox 93 08/12/21 04:00 08/11/21 08/12/21 08/12/21 22:59 06:59 14:59 Intake Total 1000 / 1050 1015 / 2065 Output Total 650 / 660 Balance 350 / 390 1015 / 1405 Weight last 48 hrs Weight 178 lb Physical Exam Narrative: Patient is conscious alert oriented X3 No apparent distress BMI 25.5 Head and neck examination PERRLA no masses no cervical lymphadenopathy no jaundice Cardiac examination audible S1-S2 no murmurs no gallops no arrhythmias Chest is clear bilateral,abscence of Rhonchi or wheezes,no surgical emphysema Abdomen nontender except slightly at the incision sites. Otherwise clean dry and intact,nondistended soft no organomegaly guarding or rigidity/no signs of peritonitis Bowel sounds are positive Extremities no cyanosis no clubbing no edema Hospital Course Admission Diagnoses Acute appendicitis Hospital Course Patient undergone uneventful laparoscopic appendectomy. Continues to do well and patient's pain was under appropriate control. Tolerating p.o. intake and passing gas. Diet was advanced to full liquids. Continue to have stable vital signs. Adequate urine output. Patient continued to be ambulatory without assistance. Discharge Summary Patient undergone uneventful laparoscopic appendectomy with regard to the incidental finding of the liver mass on the CT scan. MRCP will be ordered as an outpatient and hepatobiliary surgery consultation will be initiated. SSS Data Data Completed and Pending: Completed Studies During Hospitalization Category Date Time Status CT abdomen pelvis w con* [id number] Urge nt Cat Scan 08/11/21 10:55 Completed Pending at discharge Category Date Time Status ES surgery / GI i mages Routine Exams 08/11/21 13:24 Taken Basic Metabolic P lukas AM LABS Lab 08/13/21 04:00 Ordered Basic Metabolic P lukas AM LABS Lab 08/14/21 04:00 Ordered Blood Culture Sta t Lab 08/11/21 12:28 Results Complete Blood Co unt w/Auto AM LABS Lab 08/13/21 04:00 Ordered Complete Blood Co unt w/Auto AM LABS Lab 08/14/21 04:00 Ordered Pathology: Surgic al [PTH] Routine Pth 08/11/21 14:45 Ordered Procedures Performed: August 11, 2021 Pre-op diagnosis: Preop Diagnosis ? Acute appendicitis? Post-op findings: Acute prececal appendicitis Finding of hepatic mass to the right of the gallbladder yellowish in color seems to be firm the exact extent could not be determined from the laparoscopic view. Procedure done: Laparoscopic appendectomy Specimens removed/disposition: Appendix Surgeon: Bang Messina MD Template Inspector: Surgical techPatricia Cross and surgical brace maker shana Anesthesia: General (OCCUPATIONAL HEALTH AND SAFETY OFFICER Jaydon/OCCUPATIONAL HEALTH AND SAFETY OFFICER student Fabian) Estimated blood loss (mL): 10 IV fluids (mL): 500 Procedure: Patient after being identified in the holding area and asked to void urine, and informed consent per chart ,patient was then taken back to the OR placed in supine position got intubated by anesthesia left arm was tucked tucked ,Timeout was done verifying the patient's name/date of /planned procedure? and destination after the procedure, all were in agreement., preoperative antibiotics administered per protocol. prep and drape of the abdomen was done under the usual sterile technique. Started by longitudinal skin incision supraumbilical using a Hopkins trocar technique safe entry to the abdominal cavity was achieved verified by using 10 mm zero degree laparoscopy, switched to a 30? scope under direct visualization a? suprapubic 5 mm trocar was inserted followed by another 5 mm trocar inserted in the left lower quadrant, I was able to position the patient in an T Oates and left side down, dissection of the prececal acutely inflamed appendix there was some adhesions towards the lateral pelvic wall that was taken down by sharp and blunt dissection, attention was deviated to the healthy base of the appendix where I had to switch the camera to 5 mm 30? scope got introduced through the left lower quadrant and through the Hopkins trocar under direct visualization a GI stapler 45 mm blue load was applied at the healthy part of the base of the appendix, and an Endoloop PDS was applied onto the mesoappendix for control , the appendix was then retrieved in an Endo Catch bag, final survey was done of the abdomen and pelvis , irrigation with warm saline, and suction was obtained, were mercury fluid like in the pelvis due to reaction from the inflamed appendix. Multiple 5 mm clips were applied onto the mesoappendix as well as the appendectomy staple line and a right lateral pelvic wall for minimal oozing. Based on the CT scan findings preoperatively I was able to have a look on the growth to the right of the gallbladder and seems to be yellowish in color.? I was not able to have an understanding of the extent of it.? Seems to be firm to hard in consistency.? Biopsies were not attempted due to risk of potential bleeding if the tumor is connected to one of the major vessels.? As MRCP was recommended by the radiologist.? Pictures were obtained per chart. Final look laparoscopy was done showing no other abnormalities or injuries, all trocars were taken out under direct visualization after the supraumblical trocar site was closed by #1 PDS sutures under direct vision using fascial closure device ,followed by skin closure using 4-0 Monocryl of all trocar site incisions.? infiltration of local lidocaine 2% was done to all incision sites.Dry dressing was applied.Count was completed at the end of the procedure for Randall , sponges and instruments. Patient tolerated the procedure well and was transferred to the recovery area after extubation. I was present for the whole entire procedure Dictated By: Bang Messina MD Signed By: Bang Messina MD Signed Date/Time: 08/12/21 [id number] Diagnoses at Discharge Discharge Diagnosis (1) Acute appendicitis: Details from hospital stay: Condition resolved and patient is discharged home Status: Acute Qualifiers: Acute appendicitis type: with localized peritonitis Appendicitis abscess presence: without abscess Appendicitis gangrene presence: without gangrene Appendicitis perforation presence: without perforation Qualified Code(s): K35.30 - Acute appendicitis with localized peritonitis, without perforation or gangrene (2) Liver mass, right lobe: Details from hospital stay: We will plan to order MRCP as an outpatient and hepatobiliary surgery consultation Status: Acute Discharge Plan Discharge Patient Disposition: Home Condition: Stable Prescriptions: New hydrocodone-acetaminophen 5-325 mg tablet 1 tab PO Q6H PRN (Reason: pain) Qty: 28 0RF amoxicillin-pot clavulanate 875-125 mg tablet 1 tab PO Q12H Qty: 10 0RF Continued atorvastatin 20 mg tablet 20 mg PO DAILY Qty: 90 1RF epinephrine 0.3 mg/0.3 mL auto-injector 0.3 mg IM Q15M PRN (Reason: anaphylaxis) Qty: 2 0RF Rx Instructions: for 2 doses 340 B triamcinolone acetonide 0.1 % cream 1 applic TOPICAL BID PRN (Reason: Itching) 0RF fluocinolone 0.01 % solution 1 applic TOPICAL BID 0RF Rx Instructions: to scalp Discharge Orders: Discharge Order (Routine); Ordered 08/12/21 Ordered By: Bang Messina Referrals: Bang Messina MD [Physician] - 1 week (Left message for the Surgery office to call patient at [phone] to [address] up with Dr. Messina in the office in 1 week. ) Yen Patton DO [Primary Care Provider] - 08/17/21 11:30 am Discharge Diet: Advance as tolerated Discharge Activity: Limit activity as instructed Patient Instructions: Hydrocodone/Acetaminophen (By mouth), Appendicitis (GEN), Laparoscopic Appendectomy (GEN), Opioid Safety Activity Restrictions/Additional Instructions: 1. Patient can shower after 48 hours from surgery 2. Remove Dermabond 7 to 10 days after surgery, if there is a secondary dressing can take down after 48 hours. 3. Up and walking as tolerated 4. Do not lift more than 5 pounds first 2 weeks after surgery and not more than 25 pounds 6 to 8 weeks after surgery. 5. Do not operate heavy machinery or drive while using pain medications. 6.Contact the office or return to the ER for worsening nausea vomiting fevers or chills, or noticing any redness around incision sites or discharge. Attestations Medical Necessity Statement*: Observation status for perioperative care Time Spent in Patient Care*: greater than 30 min Specific Discharge Activities: Specific discharge activities: educating patient and educating and/or supporting family/caregiver Status at Discharge: Cognitive status at discharge: cognitively intact, Behavioral status at discharge: cooperative, Functional status at discharge: independent ambulation Overall status at discharge: patient is progressing back to baseline Quality Metrics Clinical Quality Measures: [ No reported AMI, CVA or VTE this stay] Coding Level of Care Code Acute Mortgage Loan Reviewer for [facility] Fwd Diagnoses Acute appendicitis K35.30 Acute appendicitis type: with localized peritonitis Appendicitis abscess presence: without abscess Appendicitis gangrene presence: without gangrene Appendicitis perforation presence: without perforation Liver mass, right lobe R16.0
[2021-08-12 07:49] VITALS: BP 127/75; PULSE 61; RESP 16; TEMP 36.7; O2SAT 96
[2021-08-12 11:42] VITALS: BP 133/74; PULSE 64; RESP 16; TEMP 36.5; O2SAT 96
--- NOTE | 2021-08-12 13:45 | PC.NURSE ---
IV removed intact and patient tolerated well. Patient is A&Ox3. Respirations even and non-labored on room air. Reviewed patient's discharge with patient and at this time. Patient and verbalized understanding of discharge instructions. Patient wheel chaired to private car.
[2021-08-12 14:48] VITALS: BP 133/74; PULSE 64; RESP 16; TEMP 36.5; O2SAT 96
== END 2021-08-12 13:45 | disposition home or self-care (01) ==
LOC: ER 12:42 → OPS 12:49 → MEDSURG 15:11
PROVIDERS: Admitting Provider Surgery; Emergency Provider Physician Assistant; PCP Family Medicine; Visit Provider Surgery
PROC: 0DTJ4ZZ Resection of Appendix, Percutaneous Endoscopic Approach (ICD-10-PCS; CPT 44970; principal; 2021-08-11 13:40)
DX: K35.33 Acute appendicitis with perforation, localized peritonitis, and gangrene, with abscess (principal); R16.0 Hepatomegaly, not elsewhere classified; E78.5 Hyperlipidemia, unspecified; F17.290 Nicotine dependence, other tobacco product, uncomplicated
CPT/HCPCS: 44970; 36415; 74177; 80048; 80053; 81003; 83690; 85025; 87040; 88304; 96365; 96375; 99285; G0378; J1100; J1170; J1200; J2270; J2405; J2543; J2704; J3010; J3490; J7030; Q9967

== ENCOUNTER 2021-09-04 07:17 | Outpatient (CLI) | payer OTHER, SELFPAY ==
--- NOTE | 2021-09-04 07:29 | MM_ITS ---
WS: [id number] BILATERAL SCREENING DIGITAL BREAST TOMOSYNTHESIS MAMMOGRAM WITH CAD HISTORY: screening mammogram COMPARISON: 08/26/2020, 08/17/2019 Bilateral CC and MLO views with tomosynthesis and synthetic mammography submitted. Computer aided det ection analyzed. Breast composition: The breasts are heterogeneously dense, which may obscure small masses. No suspici ous masses, microcalcifications or architectural distortion. Scattered stable calcifications within e ach breast. MM/[place] [id number] IMPRESSION: BI-RADS: 2-Benign FOLLOW UP: 1 Year Follow-up
== END 2021-09-04 07:18 | disposition home or self-care (01) ==
LOC: RAD 07:18
PROVIDERS: PCP Family Medicine; Visit Provider Family Medicine
DX: Z12.31 Encounter for screening mammogram for malignant neoplasm of breast (principal)
CPT/HCPCS: 77063; 77067

== ENCOUNTER 2021-09-07 06:51 | Outpatient (CLI) | payer OTHER, SELFPAY ==
--- NOTE | 2021-09-07 07:15 | MR_ITS ---
WS: [id number] MRCP (MAGNETIC RESONANCE CHOLANGIOPANCREATOGRAPHY) HISTORY: R16.0 - Hepatomegaly, not elsewhere classified, gallbladder abnormality. COMPARISON: CT 08/11/2021 TECHNIQUE: Multiple sequences are performed to evaluate the intra and extrahepatic ducts. Gallbladder is well distended. Adjacent and inseparable from the gallbladder is a very vague change i n signal seen on all sequences. This area measures 19 x 16 mm and abuts the posterior surface of the gallbladder extending into the RIGHT lobe of the liver. Slightly of increased signal on the T2 sequen claire. Low signal on the T1-weighted sequences. No contrast provided to evaluate for enhancement. There is very slight bulging of the contour of the liver into the gallbladder. The gallbladder itself appe ars normal. There is no bile duct dilatation. No pancreatic duct dilatation. Lung bases are clear. Spleen and liver are normal size. No adrenal mass. Kidneys are normal. No ascit es or adenopathy. MR/MR MRCP [id number] IMPRESSION: 1. Vague change in signal intensity in the RIGHT lobe of the liver abutting th e posterior RIGHT surface of the gallbladder. This was previously described on the prior CT of 08/11/2021. This area measures 19 x 16 mm. Contrast was not given for this examination therefore enhancement cannot be evaluated. There is no ad jacent ascites and no adenopathy. Suggest short-term interval follow-up of this liver lesion as it is not a benign cystic lesion. This may be a cyst with some calcification in the wall. Could be a contained remote gallbladder perforation or complex cyst. With no history of malignancy this is not likely metastatic l esion. No change in size since 08/11/2021. Recommend follow-up CT evaluation in 3 -4 months. Evaluation should be performed with IV contrast. 2. No bile duct dilatation. Normal size liver. 3. No ascites.
== END 2021-09-07 06:52 | disposition home or self-care (01) ==
PROVIDERS: PCP Family Medicine; Visit Provider Family Medicine Adult Medicine
DX: R16.0 Hepatomegaly, not elsewhere classified (principal)
CPT/HCPCS: 74181

== ENCOUNTER → 2021-11-12 09:42 | Outpatient (BNVA) | payer OTHER, SELFPAY | PROVIDERS: PCP Family Medicine; Visit Provider Family Medicine | DX: E78.2 Mixed hyperlipidemia (principal) | CPT/HCPCS: 80061 ==

== ENCOUNTER → 2022-03-10 09:52 | Outpatient (BNVA) | payer OTHER, SELFPAY | PROVIDERS: PCP Family Medicine; Visit Provider Family Medicine Adult Medicine | DX: N32.89 Other specified disorders of bladder (principal); N30.00 Acute cystitis without hematuria | CPT/HCPCS: 81000 ==

== ENCOUNTER → 2022-04-01 09:36 | Outpatient (BNVA) | payer OTHER, SELFPAY | PROVIDERS: PCP Family Medicine; Visit Provider Family Medicine | DX: R10.9 Unspecified abdominal pain (principal) | CPT/HCPCS: 81000 ==

== ENCOUNTER → 2022-04-07 10:20 | Outpatient (BNVA) | payer OTHER, SELFPAY | PROVIDERS: PCP Family Medicine; Visit Provider Family Medicine | DX: R30.0 Dysuria (principal) | CPT/HCPCS: 87086 ==

== ENCOUNTER 2022-10-15 15:21 | Outpatient (CLI) | payer OTHER, SELFPAY ==
--- NOTE | 2022-10-15 15:31 | MM_ITS ---
WS: [id number] BILATERAL 3D TOMOSYNTHESIS DIGITAL SCREENING MAMMOGRAPHY WITH CAD CLINICAL INFORMATION: SCREENING HISTORY: Screening mammogram. No current complaints. COMPARISON: 2021 TECHNIQUE: Bilateral CC and MLO views. FINDINGS: The breasts are composed of heterogeneous fibroglandular density tissue, which can limit the detectio n of small underlying mass lesions. No suspicious mass, asymmetry, calcifications, or architectural d istortion. No evidence of malignancy. Incidental punctate calcifications. IMPRESSION: MM/[place] [id number] BI-RADS: 2-Benign FOLLOW UP: 1 Year Follow-up Recommend return to annual screening mammography..
== END 2022-10-15 15:22 | disposition home or self-care (01) ==
PROVIDERS: PCP Family Medicine; Visit Provider Family Medicine
DX: Z12.31 Encounter for screening mammogram for malignant neoplasm of breast (principal)
CPT/HCPCS: 77063; 77067

== ENCOUNTER → 2022-11-22 09:57 | Outpatient (BNVA) | payer OTHER, SELFPAY | PROVIDERS: PCP Family Medicine; Visit Provider Family Medicine | DX: E78.2 Mixed hyperlipidemia (principal); E55.9 Vitamin D deficiency, unspecified; Z86.39 Personal history of other endocrine, nutritional and metabolic disease | CPT/HCPCS: 80053; 80061; 82306; 85025 ==

== ENCOUNTER 2022-11-29 15:20 | Outpatient (CLI) | payer OTHER, SELFPAY ==
--- NOTE | 2022-11-29 15:30 | XR_ITS ---
WS: [id number] DEXA (DUAL ENERGY X-RAY ABSORPTIOMETRY) Bone mineral density was performed using a [employer] machine. HISTORY: postmenopausal COMPARISON: None available. Lumbar spine BMD (L1-L4): 1.307 g/cm2 T score: 1.1 Z score: 1.5 Total hip BMD: Left: 1.031 g/cm2. T score: 0.2 Z score: 0.6 Right: 0.976 g/cm2. T score: -0.3 Z score: 0.1 10 year probability of a major osteoporotic fracture is 6.4%. IMPRESSION: NORMAL BONE MINERAL DENSITY based upon the WHO classification for females.
== END 2022-11-29 15:21 | disposition home or self-care (01) ==
PROVIDERS: PCP Family Medicine; Visit Provider Family Medicine
DX: Z78.0 Asymptomatic menopausal state (principal)
CPT/HCPCS: 77080

== ENCOUNTER 2023-10-25 10:05 | Outpatient (CLI) | payer OTHER, SELFPAY ==
--- NOTE | 2023-10-25 10:08 | MM_ITS ---
WS: [id number] BILATERAL 3D TOMOSYNTHESIS DIGITAL SCREENING MAMMOGRAPHY WITH CAD CLINICAL INFORMATION: SCREENING HISTORY: Screening mammogram. No current complaints. COMPARISON: 2022 TECHNIQUE: Bilateral CC and MLO views. FINDINGS: The breasts are composed of heterogeneous fibroglandular density tissue, which can limit the detectio n of small underlying mass lesions. No suspicious mass, asymmetry, calcifications, or architectural d istortion. No evidence of malignancy. Incidental lucent centered and punctate calcifications. Vascula r calcifications. MM/MM [facility] tomosynthesis [id number] IMPRESSION: DENSITY: The breasts are heterogeneously dense, which may obscure small masses. BI-RADS: 2 - Benign FOLLOW UP: 1 Year Follow-up Recommend return to annual screening mammography.
== END 2023-10-25 10:06 | disposition home or self-care (01) ==
LOC: RAD 10:05
DX: Z12.31 Encounter for screening mammogram for malignant neoplasm of breast (principal)
CPT/HCPCS: 77063; 77067

== ENCOUNTER → 2023-11-17 07:12 | Outpatient (BNVA) | payer OTHER, SELFPAY | DX: Z86.39 Personal history of other endocrine, nutritional and metabolic disease (principal); E78.2 Mixed hyperlipidemia | CPT/HCPCS: 80053; 80061; 82306; 85025 ==

== ENCOUNTER 2024-01-02 07:03 | Outpatient (CLI) | payer OTHER, SELFPAY ==
--- NOTE | 2024-01-02 07:17 | US_ITS ---
WS: [id number] ULTRASOUND BILATERAL BREAST, complete. HISTORY: dense breast COMPARISON: Mammogram 10/25/2023, 10/15/2022 TECHNIQUE: 2-D and Doppler. Bilateral complete breast ultrasound has been performed. Complete breast ultrasound is being performe d due to BI-RADS dense classification. Breasts are imaged in all quadrants and documented. There are a few scattered cysts and a few hypoech oic cysts in the masses within each breast which are probably also cyst. There are no areas suspiciou s for malignancy. There is no shadowing or distortion of either breast. Fibroglandular and fibrocysti c breast tissue is identified. US/US breast BI complete [id number] IMPRESSION: BI-RADS: 2- Benign FOLLOW-UP: 1 Year Follow-up Continued with bilateral screening mammograms and bilateral ultrasound can also be performed due to dense breast if desired.
== END 2024-01-02 07:04 | disposition home or self-care (01) ==
DX: R92.333 Mammographic heterogeneous density, bilateral breasts (principal)
CPT/HCPCS: 76641

== ENCOUNTER 2024-11-02 12:56 | Outpatient (CLI) | payer OTHER, SELFPAY ==
--- NOTE | 2024-11-02 13:05 | MM_ITS ---
WS: [id number] BILATERAL 3D TOMOSYNTHESIS DIGITAL SCREENING MAMMOGRAPHY WITH CAD CLINICAL INFORMATION: SCREEN HISTORY: Screening mammogram. No current complaints. COMPARISON: 2023 TECHNIQUE: Bilateral CC and MLO views. FINDINGS: The breasts are composed of heterogeneous fibroglandular density tissue, which can limit the detection of small underlying mass lesions. No suspicious mass, asymmetry, calcifications, or architectural distortion. No evidence of malignancy. Incidental punctate and lucent centered calcifications. MM/MM [facility] tomosynthesis [id number] IMPRESSION: DENSITY: The breasts are heterogeneously dense, which may obscure small masses. BI-RADS: 2 - Benign FOLLOW UP: 1 Year Follow-up Recommend return to annual screening mammography.
== END 2024-11-02 12:57 | disposition home or self-care (01) ==
LOC: RAD 12:57
PROVIDERS: PCP Family Medicine; Visit Provider Family Medicine
DX: Z12.31 Encounter for screening mammogram for malignant neoplasm of breast (principal); R92.333 Mammographic heterogeneous density, bilateral breasts; R92.323 Mammographic fibroglandular density, bilateral breasts
CPT/HCPCS: 77063; 77067

== ENCOUNTER → 2024-11-26 08:26 | Outpatient (BNVA) | payer OTHER, SELFPAY | PROVIDERS: PCP Family Medicine; Visit Provider Family Medicine | DX: E55.9 Vitamin D deficiency, unspecified (principal); Z86.39 Personal history of other endocrine, nutritional and metabolic disease; Z13.6 Encounter for screening for cardiovascular disorders; E78.2 Mixed hyperlipidemia | CPT/HCPCS: 80053; 80061; 82306; 85025 ==